=== PATIENT | female | born 1975 | race Caucasian/White ===

== ENCOUNTER 2018-03-31 11:32 | Emergency (ER) | payer BC ==
[2018-03-31 11:40] VITALS: BMI 33.4
--- NOTE | 2018-03-31 12:13 | ED PDOC ---
HPI: Female Pain Time Seen by Provider: 03/31/18 12:05 Chief Complaint (Nursing): Bite Chief Complaint (Provider): Animal Bite History Per: Patient History/Exam Limitations: no limitations Onset/Duration Of Symptoms: Hrs (one) Current Symptoms Are (Timing): Still Present Severity: Mild Quality Of Discomfort: Sharp Associated Symptoms: denies: Fever, Chills, Nausea, Vomiting Alleviating Factors: None Additional History Per: Patient Past Medical History Reviewed: Historical Data Vital Signs: Last Vital Signs Temp 98.1 F 03/31/18 11:39 Pulse 83 03/31/18 11:39 Resp 16 03/31/18 11:39 BP 116/79 03/31/18 11:39 Pulse Ox 98 03/31/18 11:39 - Family History Family History: States: Unknown Family Hx - Home Medications Home Medications: Ambulatory Orders Medication Instructions Recorded Ondansetron [Zofran] 4 mg PO Q8H #10 tab 04/06/15 Amoxicillin/Clavulanate [Augmentin 1 tab PO BID #20 tab 03/31/18 875 MG-125 MG] - Allergies Allergies/Adverse Reactions: Allergies Allergy/AdvReac Type Severity Reaction Status Date / Time No Known Allergies Allergy Verified 04/06/15 06:26 Review of Systems ROS Statement: Except As Marked, All Systems Reviewed And Found Negative Skin: Positive for: Other (four small superfical puncture wounds) Physical Exam - Reviewed Nursing Documentation Reviewed: Yes Vital Signs Reviewed: Yes - Physical Exam Appears: Positive for: Well, Non-toxic, No Acute Distress. Negative for: Uncomfortable Head Exam: Positive for: ATRAUMATIC, NORMAL INSPECTION, NORMOCEPHALIC Skin: Positive for: Normal Color (four small (<0.1mm each) superficial ) Neck: Positive for: Normal Cardiovascular/Chest: Positive for: Regular Rate, Rhythm. Negative for: Chest Non Tender, Bradycardia, Tachycardia Respiratory: Positive for: Normal Breath Sounds. Negative for: Crackles, Rales , Rhonchi, Stridor, Wheezing, Respiratory Distress Pulses-Carotid (L): 2+ Pulses-Carotid (R): 2+ Pulses-Radial (L): 2+ Pulses-Radial (R): 2+ - ECG O2 Sat by Pulse Oximetry: 98 Medical Decision Making Medical Decision Making: vaccinated domesticated kitten bite rx amox tdap Disposition - Clinical Impression Clinical Impression: Animal bite wound - Patient ED Disposition Is Patient to be Admitted: No Counseled Patient/Family Regarding: Diagnosis, Need For Followup, Rx Given - Disposition Disposition: Routine/Home Disposition Time: 12:16 Condition: STABLE Prescriptions: Amoxicillin/Clavulanate [Augmentin 875 MG-125 MG] 1 tab PO BID #20 tab Instructions: Animal and Human Bites, Animal Bites (DC)
[2018-03-31] MEDS ORDERED: Tdap Vaccine 0.5 ml Vial (10-64 yrs) IM ONE ×2 (12:15→12:22)
[2018-03-31] MEDS ORDERED: Amoxicillin-Clav 875-125 mg Tab PO STA (12:17)
[2018-03-31] MEDS ORDERED: Amoxicillin-Clav 875-125 mg Tab PO ONE (12:21)
[2018-03-31 12:37] VITALS: BP 137/76; PULSE 77; RESP 18; TEMP 98; O2SAT 100
== END 2018-03-31 12:30 | disposition home or self-care (01) ==
LOC: H.ER 11:32
DX: S60.473A Other superficial bite of left middle finger, initial encounter (principal); W55.01XA Bitten by cat, initial encounter